=== PATIENT | male | born 1950 | race Caucasian/White ===

== ENCOUNTER 2016-11-16 01:02 | Emergency (ER) | payer MEDICARE, OTHER ==
[2016-11-16 01:17] VITALS: BP 123/64
--- NOTE | 2016-11-16 01:54 | ERNOTE ---
Medical Problem HPI - Narrative Date of Service: 11/16/16 - General Chief Complaint: Flu Symptoms Time Seen by Provider: 11/16/16 01:51 Source: patient - Immun/Allergies/Home Medications Immunizations: IMMUNIZATION HX History of Influenza Vaccine No Hx Pneumococcal Vaccination Yes Allergies/Adverse Reactions: Allergies hay fever Allergy (Uncoded 11/20/16 00:52) Home Medications: HOME MEDICATIONS Amlodipine Besylate 10 mg PO DAILY 11/16/16 [Last Taken Unknown] Atorvastatin Calcium 10 mg PO DAILY 11/16/16 [Last Taken Unknown] Fenofibrate 160 mg PO DAILY 11/16/16 [Last Taken Unknown] Finasteride [Proscar] 5 mg PO DAILY 11/16/16 [Last Taken Unknown] Latanoprost [Xalatan] 1 drop OP BID 11/16/16 [Last Taken Unknown] Omeprazole 40 mg PO DAILY 11/16/16 [Last Taken Unknown] Tamsulosin HCl [Flomax] 0.4 mg PO DAILY 11/16/16 [Last Taken Unknown] Timolol Maleate [Timoptic 0.5% Ophthalmic Solution] 5 ml OP BID 11/16/16 [Last Taken Unknown] guaiFENesin [Mucinex] 600 mg PO BID 11/20/16 [Last Taken Unknown] Losartan Potassium [Cozaar] 100 mg PO DAILY #30 tablet 11/24/16 [Last Taken Unknown] - History of Present History Narrative: PT C/O COLD SX'S FOR 1 WEEK WITH SINUS CONGESTION AND PRODUCTIVE COUGH WITH WHITISH PHLEGM. NO KNOWN FEVER. USING NYQUIL WITHOUT MUCH HELP. WANTS AN ATB. Review of Systems - Review of Systems Constitutional: Present: See HPI ENT: Present: See HPI, nose congestion, nasal drainage Respiratory: Present: See HPI, cough Cardiology: Present: no symptoms reported Gastrointestinal/Abdominal: Present: no symptoms reported Genitourinary: Present: no symptoms reported Musculoskeletal: Present: no symptoms reported Skin: Present: no symptoms reported Neurological: Present: no symptoms reported Hematologic/Lymphatic: Present: no symptoms reported Psych: Present: no symptoms reported All Other Systems: All systems neg except as marked - Patient's Past Medical History Patient History - Medical: No pertinent hx, Arthritis, Obesity, Other Patient History - Cardiac/Respiratory: Hypertension, Hyperlipidemia Patient History - Cancer: No Hx of Cancer Patient History - Surgical Procedures: Cataracts Patient History - Other: None - Social History Living Situations: other Abuse History: No History of abuse Psych History: No pertinent hx Smoking Status: Former smoker Have you smoked in the past 12 months: No Alcohol Use: occasionally Drug Use: marijuana - Immunizations Hx Pneumococcal Vaccination: Yes History of Influenza Vaccine: No Physical Exam - Physical Exam General Appearance: Present: wd/wn, alert, no apparent distress Ears, Nose, Throat: Present: normal except -, nasal congestion, other - + POST NASAL DRAINAGE. Neck: Present: normal inspection Respiratory: Present: no respiratory distress, normal breath sounds, no accessory muscle use, chest nontender, lungs clear - CLEAR TO A & P Cardiovascular/Chest: Present: regular rate, rhythm, no murmur, normal peripheral pulses Neurological Exam: Present: alert, oriented Skin Exam: Present: normal color. Absent: skin rash ED Progress - Vital Signs Vital Signs: Vital Signs 11/16/16 01:08 Temperature 37.4 C Pulse Rate 56 L Respiratory 16 Rate Blood Pressure 123/64 O2 Sat by Pulse 95 Oximetry - Progress/Reassessment Chief Complaint: Flu Symptoms Departure - Departure Clinical Impression: Upper respiratory infection with cough and congestion Disposition: Home Follow Up Needed Condition: Good Instructions: Cough, Adult, [id number], Viral Respiratory Infection, Easy-To- Read, Upper Respiratory Infection, Adult, [id number] Referrals: Aric Iniguez MD [Primary Care Provider] -
--- OUTSIDE RECORDS SUMMARY | 2016-11-16 02:32 | XMS REPORT | Continuity of Care Document ---
:1950 Author Organization [facility] ([facility]) Address [address] [place] [address] Phone [phone] Care Team Providers Name Role Phone Aric Iniguez Primary Care Provider [phone] Source Comments This disclosure is being made pursuant to the Care Everywhere program, applicable federal and state laws, and may not contain all informaitonavailable regarding this patient.[facility] ([facility]) Active Allergies and Adverse Reactions No Known Allergies Current Medications Prescription Sig. Disp. Refills Start Date End Date Status tadalafil (CIALIS) 10 mg Take 10 mg by Active tablet mouth as needed. Indications: Erectile Dysfunction rosuvastatin (CRESTOR) 5 Take 5 mg by Active mg tablet mouth every evening. valsartan-hydrochlorothiaz Take 1 Tab by Active renée (DIOVAN HCT) 320-12.5 mouth daily. mg per tablet fexofenadine 180 mg tablet Take 180 mg by Active mouth as needed. DOCOSAHEXANOIC ACID/EPA Take by mouth Active (FISH OIL PO) daily. fluticasone (FLONASE) 50 use 2 Sprays into Active mcg/Actuation nasal spray the nose as needed. hydrochlorothiazide 25 mg Take 25 mg by Active tablet mouth daily. esomeprazole (NEXIUM) 40 Take 40 mg by Active mg EC capsule mouth every 48 hours. amLODIPine (NORVASC) 10 mg Take 10 mg by Active tablet mouth daily. Fenofibric Acid (TRILIPIX) Take 135 mg by Active 135 mg CpDR mouth daily. aspirin 325 mg tablet Take 325 mg by Active mouth daily. finasteride 5 mg tablet Take 1 Tab by 90 Tab 1 06/16/2013 Active mouth daily. Indications: BENIGN PROSTATIC HYPERTROPHY tamsulosin 0.4 mg ER Take 2 Caps by 60 Cap 5 02/12/2014 Active capsule mouth daily. Indications: BENIGN PROSTATIC HYPERTROPHY Active Problems Problem Noted Date BPH (benign prostatic hyperplasia) 08/14/2011 Social History Tobacco Use Types Packs/Day Years Used Date Former Smoker Cigarettes Smokeless Tobacco: Never Used Last Filed Vital Signs Vital Sign Reading Time Taken Blood Pressure 144/70 11/18/2012 11:12 AM CDT Pulse 57 11/18/2012 11:12 AM CDT Temperature 36.5 C (97.7 F) 11/18/2012 11:12 AM CDT Respiratory Rate 18 11/18/2012 11:12 AM CDT Height 1.803 m (5' 11") 11/18/2012 11:12 AM CDT Weight 115.395 kg (254 lb 6.4 oz) 11/18/2012 11:12 AM CDT Body Mass Index 35.5 11/18/2012 11:12 AM CDT Oxygen Saturation 98% 11/18/2012 11:12 AM CDT Plan of Care Health Maintenance Due Date Last Done Comments HCV Screening 1950 Hepatitis B Vaccine (1 of 3 - Primary Series) 1950 Tdap Vaccine 01/30/1959 Lipid Disorder Screening 01/30/1966 Td Vaccine 01/30/1966 Colonoscopy 01/30/1998 Prostate Cancer Screening 01/30/1998 Zoster Vaccine 2008 Pneumococcal Vaccine (1 of 2 - PCV13) 01/30/2013 Influenza Vaccine: Seasonal (#1) 03/16/2016 Results from Last 3 Months Not on file
== END 2016-11-16 02:28 | disposition home or self-care (01) ==
LOC: ER 01:02
DX: J06.9 Acute upper respiratory infection, unspecified (principal); Z87.891 Personal history of nicotine dependence

== ENCOUNTER 2016-11-19 22:50 | Inpatient (IN) | payer MEDICARE, OTHER ==
[2016-11-19 23:17] LABS: Hemoglobin 12.5 gm/dL (13.5-18.0); Mean Cell Volume 76.2 fl (78-100); Mean Platelet Volume 10.3 fl (6.0-9.5); Neutrophil # 7.6 K/mm3 (1.3-6.0); Neutrophil % 84.8 % (42-75.0); Platelet Count 226 K/mm3 (150-450); Red Blood Count 4.33 M/mm3 (4.7-6.0); Red Cell Distribution Width 11.6 % (11.5-14.0); White Blood Count 8.9 K/mm3 (4.0-10.5)
[2016-11-19 23:24] LABS: Mean Corpuscular Hgb Conc 37.9 g/dl (32-36); Prothrombin Time (Patient) 11.3 Seconds (9.4-11.4)
[2016-11-19 23:25] LABS: INR 1.09 INR (0.90-1.10)
[2016-11-19 23:27] LABS: ALT 63 U/L (19-67); AST 57 U/L (0-48); Albumin * 3.2 gm/dl (3.4-5.0); Alkaline Phosphatase * 41 U/L (50-170); Anion Gap 13.4 mmol/L (6.8-13.8); BNP * 487 pg/mL (5-350); BUN/Creatinine Ratio 22.9 (9.0-21.6); Bilirubin, Total 1.3 mg/dL (0.0-1.1); Blood Urea Nitrogen 30 mg/dL (6-23); Ca. Corrected For Albumin 8.8 mg/dL (8.4-10.2); Calcium * 8.5 mg/dL (7.9-10.9); Carbon Dioxide 26.1 mmol/L (24-32.6); Chloride 78 mmol/L (97-106); Glucose * 130 mg/dL (70-110); Mean Corpuscular Hemoglobin 28.9 pg (27-31); Potassium 3.5 mmol/L (3.4-4.6); Total Protein 7.2 gm/dL (6.2-8.2)
[2016-11-19 23:29] LABS: Sodium 114 mmol/L (132-142); Troponin I Less than 0.017 ng/ml (0.00-0.10)
--- NOTE | 2016-11-19 23:31 | ERNOTE ---
Syncope ER HPI Stated Complaint: NEW SYNCOPAL Immunizations: IMMUNIZATION HX Immunizations Up to Date No History of Influenza Vaccine No Hx Pneumococcal Vaccination Yes Allergies/Adverse Reactions: Allergies No Known Allergies Allergy (Verified 11/19/16 22:58) Home Medications: HOME MEDICATIONS Amlodipine Besylate 10 mg PO DAILY 11/16/16 [Last Taken Unknown] Atorvastatin Calcium 10 mg PO DAILY 11/16/16 [Last Taken Unknown] Benzonatate [Tessalon Perle] 100 mg PO Q6H #30 capsule 11/16/16 [Last Taken Unknown] Fenofibrate 160 mg PO DAILY 11/16/16 [Last Taken Unknown] Finasteride [Proscar] 5 mg PO DAILY 11/16/16 [Last Taken Unknown] Hydrochlorothiazide [Hydrodiuril] 25 mg PO DAILY 11/16/16 [Last Taken Unknown] Latanoprost [Xalatan] 1 drop OP BID 11/16/16 [Last Taken Unknown] Omeprazole 40 mg PO DAILY 11/16/16 [Last Taken Unknown] Tamsulosin HCl [Flomax] 0.4 mg PO DAILY 11/16/16 [Last Taken Unknown] Timolol Maleate [Timoptic 0.5%] 5 ml OP BID 11/16/16 [Last Taken Unknown] Valsartan/Hydrochlorothiazide [Diovan Hct 320-12.5 mg Tab] 1 each PO DAILY 11/16 [Last Taken Unknown] - History of Present Illness Narrative: here for feeling weak. recent diagnosis of URI this am on ABX. He felt dizzy and felt as if he was having a panic attack this am. So EMS was called. When EMS got to residence they noted that he was somewhat weak. pt. has no focal neurological deficits. Review of Systems - Review of Systems Constitutional: Present: no symptoms reported EYE: Present: no symptoms reported ENT: Present: no symptoms reported Respiratory: Present: cough Cardiology: Present: no symptoms reported Gastrointestinal/Abdominal: Present: no symptoms reported Musculoskeletal: Present: no symptoms reported - Patient's Past Medical History Patient History - Medical: No pertinent hx, Arthritis, Other Patient History - Cardiac/Respiratory: Hypertension, Hyperlipidemia Patient History - Cancer: No Hx of Cancer Patient History - Surgical Procedures: Cataracts Patient History - Other: None - Social History Living Situations: home Abuse History: No History of abuse Psych History: No pertinent hx Smoking Status: Former smoker Patient requests Smoking Cessation Consult: No Initiate information on Smoking Cessation: No Alcohol Use: occasionally Drug Use: marijuana - Immunizations Immunizations Up to Date: No Hx Pneumococcal Vaccination: Yes History of Influenza Vaccine: No Physical Exam - Physical Exam General Appearance: Present: wd/wn, alert, no apparent distress Eye Exam: Normal inspection: bilateral, PERRL: bilateral, EOMI: bilateral Ears, Nose, Throat: Present: normal ENT inspection Neck: Present: normal inspection, nontender Respiratory: Present: no respiratory distress, normal breath sounds, chest nontender, lungs clear Cardiovascular/Chest: Present: regular rate, rhythm, no murmur, normal peripheral pulses Gastrointestinal/Abdominal: Present: other - pt is morbidly obese and exam is VERY challenging but his belly is benign Extremity Exam: Present: normal inspection ED Progress - Results and Orders Patient's Lab Results:: I have reviewed the patient's lab results. - Vital Signs Patient's Vital Signs:: I have reviewed the patient's vital signs. Vital Signs: Vital Signs 11/19/16 11/19/16 22:50 23:06 Temperature 36 C L Pulse Rate 63 62 Respiratory 18 18 Rate Blood Pressure 171/69 161/67 O2 Sat by Pulse 95 95 Oximetry - Progress/Reassessment Chief Complaint: Syncopal Episode Plan - Plan Plan: This patient's Sodium is 114. He has Hyponatremia and admits to having drank lots of water today. Hospitalist was consulted for admission. Departure Clinical Impression: Hyponatremia - Departure Disposition: [facility] Condition: Fair Referrals: Aric Iniguez MD [Primary Care Provider] -
--- OUTSIDE RECORDS SUMMARY | 2016-11-19 23:43 | XMS REPORT | Continuity of Care Document ---
:1950 Author Organization [facility] ([facility]) Address [address] [place] [address] Phone [phone] Care Team Providers Name Role Phone Aric Iniguez Primary Care Provider [phone] Source Comments This disclosure is being made pursuant to the Care Everywhere program, applicable federal and state laws, and may not contain all informaitonavailable regarding this patient.[facility] ([facility]) Active Allergies and Adverse Reactions No Known [...]
--- OUTSIDE RECORDS SUMMARY | 2016-11-19 23:47 | XMS REPORT | Continuity of Care Document ---
:1950 Author Organization [facility] ([facility]) Address [address] [place] [address] Phone [phone] Care Team Providers Name Role Phone Aric Iniguez Primary Care Provider [phone] Source Comments This disclosure is being made pursuant to the Care Everywhere program, applicable federal and state laws, and may not contain all informaitonavailable regarding this patient.[facility] ([facility]) Active Allergies and Adverse Reactions No [...]
[2016-11-20] MEDS ORDERED: NORMAL SALINE 1,000 ML IV PRN (01:37)
--- NOTE | 2016-11-20 02:08 | HP ---
Chief Complaint - Chief Complaint Date of Service: 11/20/16 Time of Service: 01:00 Chief Complaint: syncope, weakness, bronchitis History of Present Illness: 66 years old male adm to the hospital from ER with reports of bronchitis, weakness and near syncope. pt stated he was seen yesterday By Dr Iniguez in the clinic and he is been treated for bronchitis.pt report productive cough with thick yellow to white sputum. He stated while at home earlier he felt like he was going to pass out. He called EMS and was brought to the hospital. In ER Na+ 114, BUN/Cre 30/1.31 BNP 487. Will initiate IVF an gentle hydration with NaCL 3%. PMH significant for BPH, hypertension, depression, ED, GERD, and HDL.plan of care discussed with pt he verbalized understanding and agree. - Patient's Past Medical History Patient History - Medical: Arthritis, Depression, GERD, Glaucoma, Obesity, Other - bph, ERECTILE DYSFUNCTION Patient History - Cardiac/Respiratory: Bronchitis, CHF, Hypertension, Hyperlipidemia Patient History - Cancer: No Hx of Cancer Patient History - Surgical Procedures: Cataracts, Colonoscopy, EGD, Other - SKIN EXCISION LESION., Urology - CYSTOSCOPY Patient History - Other: None - Family History Father Family History - Medical: Family History - Cardiac/Respiratory: Coronary Heart Disease, CHF Mother Family History - Medical: Family History - Cancer: Cervical - Social History Living Situations: home Abuse History: No History of abuse Psych History: No pertinent hx Smoking Status: Former smoker Have you smoked in the past 12 months: No Patient requests Smoking Cessation Consult: No Initiate information on Smoking Cessation: No Alcohol Use: occasionally Drug Use: marijuana - Immunizations Immunizations Up to Date: No Hx Pneumococcal Vaccination: Yes History of Influenza Vaccine: No Review Of Systems (GEN) - Review of Systems Generalized/Overall Review: Present: No Symptoms Reported EENTM: Present: No Symptoms Reported Respiratory: Present: No Symptoms Reported Cardiac: Present: No Symptoms Reported Abdominal: Present: No Symptoms Reported Genitourinary: Present: No Symptoms Reported Musculoskeletal: Present: Other - weakness Neurological: Present: Weakness Skin: Present: No Symptoms Reported Endocrine: Present: No Symptoms Reported Immunizations: IMMUNIZATION HX Immunizations Up to Date No History of Influenza Vaccine No Hx Pneumococcal Vaccination Yes Allergies/Adverse Reactions: Allergies Allergy/AdvReac Type Severity Reaction Status Date / Time hay fever Allergy Uncoded 11/20/16 00:52 Home Medications: HOME MEDICATIONS Amlodipine Besylate 10 mg PO DAILY 11/16/16 [Last Taken Unknown] Atorvastatin Calcium 10 mg PO DAILY 11/16/16 [Last Taken Unknown] Fenofibrate 160 mg PO DAILY 11/16/16 [Last Taken Unknown] Finasteride [Proscar] 5 mg PO DAILY 11/16/16 [Last Taken Unknown] Hydrochlorothiazide [Hydrodiuril] 25 mg PO DAILY 11/16/16 [Last Taken Unknown] Latanoprost [Xalatan] 1 drop OP BID 11/16/16 [Last Taken Unknown] Omeprazole 40 mg PO DAILY 11/16/16 [Last Taken Unknown] Tamsulosin HCl [Flomax] 0.4 mg PO DAILY 11/16/16 [Last Taken Unknown] Timolol Maleate [Timoptic 0.5%] 5 ml OP BID 11/16/16 [Last Taken Unknown] Valsartan/Hydrochlorothiazide [Diovan Hct 320-12.5 mg Tab] 1 each PO DAILY 11/16 [Last Taken Unknown] Azithromycin [Zithromax Tri-Diego] 500 mg PO DAILY 11/20/16 [Last Taken 11/19/16] guaiFENesin [Mucinex] 600 mg PO BID 11/20/16 [Last Taken Unknown] predniSONE [Prednisone] 40 mg PO DAILY 11/20/16 [Last Taken 11/19/16] Exam - Exam Vital Signs: Vital Signs - Last Taken Temp 36.3 C L 11/20/16 00:43 Pulse 60 11/20/16 00:43 Resp 20 11/20/16 00:43 BP 164/76 11/20/16 00:43 Pulse Ox 96 11/20/16 00:43 Constitutional: Present: Alert, Oriented x3, Cooperative, No distress, Lethargic , Elderly ENT Exam: Present: moist mucous membranes Eye Exam: bilateral eye: PERRL Neck: Present: full range of motion Back Exam: Present: no CVA tenderness Breasts: Present: Exam deferred Respiratory: Present: chest non-tender, lungs clear, normal breath sounds, no respiratory distress, no accessory muscle use Cardiovascular/Chest: Present: normal peripheral pulses, regular rate, rhythm, no chest tenderness, no edema, no gallop, systolic murmur Peripheral Pulses: dorsalis-pedis (R): 2+, dorsalis-pedis (L): 2+ Abdomen: Present: Normal bowel sounds, soft, nontender, nondistended, no rebound tenderness /Rectal: Present: Exam deferred Extremity: Present: normal range of motion, non-tender, normal inspection, no pedal edema, no calf tenderness, leg cramps Skin Exam: Present: normal color, warm/dry, no cyanosis Neurologic: Present: oriented x 3 Appearance: Present: appropriate appearance Eye contact: Present: cooperative Thoughts: Present: normal thought pattern Diagnostic Studies: Laboratory Results WBC 8.9 K/mm3 (4.0-10.5) 11/19/16 22:50 RBC 4.33 M/mm3 (4.7-6.0) L 11/19/16 22:50 Hgb 12.5 gm/dL (13.5-18.0) L 11/19/16 22:50 Hct 33.0 % (42.0-52.0) L 11/19/16 22:50 MCV 76.2 fl (78-100) L 11/19/16 22:50 MCH 28.9 pg (27-31) 11/19/16 22:50 MCHC 37.9 g/dl (32-36) H 11/19/16 22:50 RDW 11.6 % (11.5-14.0) 11/19/16 22:50 Plt Count 226 K/mm3 (150-450) 11/19/16 22:50 MPV 10.3 fl (6.0-9.5) H 11/19/16 22:50 Immature Gran % (Auto) 0.90 % (0.001-0.429) H 11/19/16 22:50 Immature Gran # (Auto) 0.08 K/mm3 (0.000-0.0310) H 11/19/16 22:50 Neutrophils % 84.8 % (42-75.0) H 11/19/16 22:50 Lymphocytes % 7.7 % (20-51) L 11/19/16 22:50 Monocytes % 6.5 % (0.0-9) 11/19/16 22:50 Eosinophils % 0.0 % (0.0-3.0) 11/19/16 22:50 Basophils % 0.1 % (0.0-1.0) 11/19/16 22:50 Nucleated RBC % 0.0 k/mm3 (0-1) 11/19/16 22:50 Neutrophils # 7.6 K/mm3 (1.3-6.0) H 11/19/16 22:50 Lymphocytes # 0.7 k/mm3 (1.5-3.5) L 11/19/16 22:50 Monocytes # 0.6 k/mm3 (0.0-1.0) 11/19/16 22:50 Eosinophils # 0.0 k/mm3 (0.0-0.7) 11/19/16 22:50 Absolute Basophils 0.0 k/mm3 (0.0-0.1) 11/19/16 22:50 PT 11.3 Seconds (9.4-11.4) 11/19/16 22:50 INR (Anticoag Therapy) 1.09 INR (0.90-1.10) 11/19/16 22:50 PTT (Ivette) 34.0 Seconds (24-32) H 11/19/16 22:50 Sodium 114 mmol/L (132-142) L* D 11/19/16 22:50 Plasma Sodium 114 mmol/L (130-142) L* 11/19/16 22:50 Potassium 3.5 mmol/L (3.4-4.6) 11/19/16 22:50 Chloride 78 mmol/L (97-106) L 11/19/16 22:50 Carbon Dioxide 26.1 mmol/L (24-32.6) 11/19/16 22:50 Anion Gap 13.4 mmol/L (6.8-13.8) 11/19/16 22:50 BUN 30 mg/dL (6-23) H D 11/19/16 22:50 Creatinine 1.31 mg/dL (0.4-1.4) 11/19/16 22:50 Est GFR (Non-Af Amer) 58 mL/min (60-130) L 11/19/16 22:50 BUN/Creatinine Ratio 22.9 (9.0-21.6) H 11/19/16 22:50 Random Glucose 130 mg/dL (70-110) H 11/19/16 22:50 Calcium 8.5 mg/dL (7.9-10.9) 11/19/16 22:50 Calcium Adj for Albumin 8.8 mg/dL (8.4-10.2) 11/19/16 22:50 Total Bilirubin 1.3 mg/dL (0.0-1.1) H 11/19/16 22:50 AST 57 U/L (0-48) H 11/19/16 22:50 ALT 63 U/L (19-67) 11/19/16 22:50 Alkaline Phosphatase 41 U/L (50-170) L 11/19/16 22:50 Troponin I Less than 0.017 ng/ml (0.00-0.10) 11/19/16 22:50 B-Natriuretic Peptide 487 pg/mL (5-350) H 11/19/16 22:50 Total Protein 7.2 gm/dL (6.2-8.2) 11/19/16 22:50 Albumin 3.2 gm/dl (3.4-5.0) L 11/19/16 22:50 Assessment/Plan - Narrative Narrative: Acute Hyponatremia-Likely due to hctz use Will hold HCTZ and diovan/ HCTZ On adm Na+ 114---->112, 07/2016 on previous adm Na+ 140 D/C Normal saline @80ml/hr,Initiated Nacl 3% 15ml/hr and monitor sodium q2HR as sodium continues to trending down. Monitor urine serum urine osmolality CMP in am Near Syncope- possible due to hyponatremia Pt report of syncopal episode while at home before coming to the ER. Orthostatic vital signs safety measures while hospitalized Plan same as #1 GERD Continue with home dose of medication Bronchitis Pt was seen by PCP earlier today and prescribed Azithromycin and prednisone 40mg x5 days Continue with oral medications Monitor CBC, BMP in morning Code status: Full VTE ppx: GI ppx: Anticipate discharge home 0-2 days and follow up with PCP Time 30 minutes and previous records reviewed. - Assessment/Plan (1) Hyponatremia Problem: Acute (2) Bronchitis Problem: Acute (3) GERD (gastroesophageal reflux disease) Problem: Chronic
[2016-11-20 02:30] LABS: Albumin * 3.1 gm/dl (3.4-5.0); Anion Gap 14.2 mmol/L (6.8-13.8); BUN/Creatinine Ratio 22.6 (9.0-21.6); Bilirubin, Total 1.3 mg/dL (0.0-1.1); Ca. Corrected For Albumin 8.8 mg/dL (8.4-10.2); Calcium * 8.4 mg/dL (7.9-10.9); Carbon Dioxide 25.3 mmol/L (24-32.6); Potassium 3.5 mmol/L (3.4-4.6); Total Protein 7.3 gm/dL (6.2-8.2)
[2016-11-20] MEDS: SODIUM CHLORIDE 3 % 500 ML IV SCH ×3 (03:06→16:12)
[2016-11-20 06:17] LABS: Albumin * 3.3 gm/dl (3.4-5.0); Anion Gap 13.5 mmol/L (6.8-13.8); BUN/Creatinine Ratio 21.9 (9.0-21.6); Bilirubin, Total 1.2 mg/dL (0.0-1.1); Calcium * 8.8 mg/dL (7.9-10.9); Chol/HDL Risk Ratio 3.3 mg/dL (3.3-5.0); Potassium 3.5 mmol/L (3.4-4.6); Total Protein 7.4 gm/dL (6.2-8.2)
[2016-11-20] MEDS: PANTOPRAZOLE SODIUM 40 MG TABLET.EC PO SCH (06:46)
[2016-11-20] MEDS ORDERED: ACETAMINOPHEN 500 MG TABLET PO PRN (06:50)
[2016-11-20] MEDS ORDERED: SODIUM CHLORIDE 3 % 500 ML IV SCH (08:45)
[2016-11-20] MEDS: amLODIPine BESYLATE 10 MG TABLET PO SCH (08:47)
[2016-11-20] MEDS: FINASTERIDE 5 MG TABLET PO SCH (08:47)
[2016-11-20] MEDS: FENOFIBRATE,MICRONIZED 134 MG CAPSULE PO SCH (08:47)
[2016-11-20] MEDS: TIMOLOL MALEATE 50 DROP BTL OP SCH ×2 (08:48→20:58)
[2016-11-20] MEDS: predniSONE 20 MG TABLET PO SCH (08:48)
[2016-11-20] MEDS: LATANOPROST 25 DROP BTL OP SCH ×2 (08:49→20:58)
[2016-11-20] MEDS: POLYETHYLENE GLYCOL 3350 119 GM BTL PO SCH (08:51)
[2016-11-20] MEDS: ENOXAPARIN SODIUM 40 MG/0.4 ML SYRG SC SCH (08:57)
[2016-11-20] MEDS ORDERED: TAMSULOSIN HCL 0.4 MG CAP.SR.24H PO SCH (09:00)
[2016-11-20] MEDS ORDERED: ATORVASTATIN CALCIUM 10 MG TABLET PO SCH (09:00)
[2016-11-20] MEDS ORDERED: AZITHROMYCIN 500 MG PO SCH (09:00)
[2016-11-20] MEDS: AZITHROMYCIN 250 MG TABLET PO SCH (09:39)
[2016-11-20] MEDS ORDERED: SODIUM CHLORIDE 3 % 500 ML IV PRN ×2 (09:44→16:06)
--- NOTE | 2016-11-20 10:06 | PN ---
Subjective - Date and Time Seen Date: 11/20/16 Time: 10:02 Subjective Narrative: Patient AAO X3 . No N/V/KELLEY. Positive cough and near syncope yesterday. Objective - Review of Systems Generalized/Overall Review: Reports: Weakness. Denies: Chills, Fever EENTM: Reports: No Symptoms Reported Respiratory: Reports: Cough, Shortness of Breath, Wheezing Cardiac: Denies: Chest Pain, Edema, Palpitations Abdominal: Denies: Nausea, Vomiting Genitourinary Symptoms: Denies: Urgency, Frequency Musculoskeletal Complaints: Reports: Joint Pain Neurological: Reports: Weakness - generalized. Denies: Headache, Numbness, Parasthesia, Seizure, Tingling - Vitals Vitals: Last Vital Signs Temp 36.5 C 11/20/16 06:31 Pulse 60 11/20/16 08:47 Resp 24 H 11/20/16 06:31 BP 171/72 11/20/16 08:47 Pulse Ox 94 11/20/16 06:31 - Exam Constitutional: Present: Alert, Oriented x3, Cooperative ENT Exam: Present: hearing grossly normal Neck: Present: supple Breasts: Present: Exam deferred Respiratory: Present: decreased breath sounds, crackles, wheezing - occasional Cardiovascular/Chest: Present: regular rate, rhythm, no JVD, no murmur Abdomen: Present: Normal bowel sounds, soft, nontender, nondistended Extremity: Present: no pedal edema, no calf tenderness 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 on hypertonic saline. cannot rule chronic hyponatremia as his last Na was 2015 and it was normal. Unlikely SIADH from his acute pulmonary process. (2) Bronchitis Problem: Acute Narrative: continue with Azithromycin. (3) GERD (gastroesophageal reflux disease) Problem: Chronic (4) Hypertension Problem: Chronic Qualifiers: Hypertension type: essential hypertension Qualified Code(s): I10 - Essential (primary) hypertension (5) Hyperlipidemia Problem: Chronic Qualifiers: Hyperlipidemia type: mixed hyperlipidemia Qualified Code(s): E78.2 - Mixed hyperlipidemia (6) BPH (benign prostatic hypertrophy) Problem: Chronic Qualifiers: Prostatic enlargement morphology: unspecified morphology Lower urinary tract symptom presence: presence of symptoms unspecified Qualified Code(s): N40.0 - Benign prostatic hyperplasia without lower urinary tract symptoms
[2016-11-20 10:26] LABS: Chol/HDL Risk Ratio 3.5 mg/dL (3.3-5.0); TSH * 0.464 uIU/mL (0.358-3.74)
[2016-11-20] MEDS ORDERED: ALBUTEROL SULFATE/IPRATROPIUM 3 ML NEBU IH PRN (12:16)
[2016-11-20] MEDS ORDERED: SODIUM CHLORIDE 500 DROP BTL NS PRN (13:39)
[2016-11-20] MEDS ORDERED: hydrOXYzine HCL 25 MG TABLET PO PRN (17:00)
[2016-11-20] MEDS: TAMSULOSIN HCL 0.4 MG CAP.SR.24H PO SCH (19:06)
[2016-11-20] MEDS: ROSUVASTATIN CALCIUM 10 MG TABLET PO SCH (20:57)
[2016-11-21] MEDS: SODIUM CHLORIDE 3 % 500 ML IV SCH ×2 (01:26→17:10)
[2016-11-21] MEDS: PANTOPRAZOLE SODIUM 40 MG TABLET.EC PO SCH (06:30)
--- NOTE | 2016-11-21 08:54 | PN ---
Subjective - Date and Time Seen Date: 11/21/16 Time: 08:51 Subjective Narrative: Patient is feeling better but still coughing , mostly nonprodcutive. Na is up 127. Objective - Review of Systems Generalized/Overall Review: Denies: Chills, Fever EENTM: Reports: No Symptoms Reported Respiratory: Reports: Cough. Denies: Shortness of Breath, Wheezing Cardiac: Denies: Chest Pain, Edema, Palpitations Abdominal: Denies: Nausea, Vomiting Genitourinary Symptoms: Denies: Urgency, Frequency Musculoskeletal Complaints: Denies: Joint Pain - Vitals Vitals: Last Vital Signs Temp 36.6 C 11/21/16 06:37 Pulse 54 L 11/21/16 06:37 Resp 20 11/21/16 06:37 BP 129/63 11/21/16 06:37 Pulse Ox 93 11/21/16 06:37 - Abnormal Lab Findings Abnormal Lab Findings: Abnormal Lab Results 11/20/16 11/20/16 11/20/16 Range/Units 10:08 12:10 16:39 Sodium 116 L* 114 L* 116 L* (132-142) mmol/L LDL Cholesterol 61 L (70-130) mg/dL HDL Cholesterol 31 L (40-60) mg/dL 11/20/16 11/21/16 11/21/16 Range/Units 20:05 00:23 03:45 Sodium 119 L 123 L 123 L (132-142) mmol/L LDL Cholesterol (70-130) mg/dL HDL Cholesterol (40-60) mg/dL 11/21/16 Range/Units 08:14 Sodium 127 L (132-142) mmol/L LDL Cholesterol (70-130) mg/dL HDL Cholesterol (40-60) mg/dL - Exam Constitutional: Present: Alert, Oriented x3, Cooperative ENT Exam: Present: hearing grossly normal Neck: Present: supple Breasts: Present: Exam deferred Respiratory: Present: decreased breath sounds, No rales, No wheezing Cardiovascular/Chest: Present: regular rate, rhythm, no JVD, no murmur Abdomen: Present: Normal bowel sounds, soft, nontender, nondistended, no rebound tenderness Extremity: Present: no pedal edema, no calf tenderness Assessment/Plan - Problems/Diagnosis (1) Hyponatremia Problem: Acute Narrative: improving. Na 127 . (2) Bronchitis Problem: Acute Narrative: continue with azithromycin. (3) GERD (gastroesophageal reflux disease) Problem: Chronic (4) Hypertension Problem: Chronic Qualifiers: Hypertension type: essential hypertension Qualified Code(s): I10 - Essential (primary) hypertension (5) Hyperlipidemia Problem: Chronic Qualifiers: Hyperlipidemia type: mixed hyperlipidemia Qualified Code(s): E78.2 - Mixed hyperlipidemia (6) BPH (benign prostatic hypertrophy) Problem: Chronic Qualifiers: Prostatic enlargement morphology: unspecified morphology Lower urinary tract symptom presence: presence of symptoms unspecified Qualified Code(s): N40.0 - Benign prostatic hyperplasia without lower urinary tract symptoms
[2016-11-21] MEDS: LATANOPROST 25 DROP BTL OP SCH ×2 (09:30→20:18)
[2016-11-21] MEDS: TIMOLOL MALEATE 50 DROP BTL OP SCH ×2 (09:30→20:14)
[2016-11-21] MEDS: FLUTICASONE PROPIONATE 120 SPRAY INHALER NS SCH (09:30)
[2016-11-21] MEDS: ENOXAPARIN SODIUM 40 MG/0.4 ML SYRG SC SCH (09:30)
[2016-11-21] MEDS: POLYETHYLENE GLYCOL 3350 119 GM BTL PO SCH (09:30)
[2016-11-21] MEDS: AZITHROMYCIN 250 MG TABLET PO SCH (09:31)
[2016-11-21] MEDS: FENOFIBRATE,MICRONIZED 134 MG CAPSULE PO SCH (09:31)
[2016-11-21] MEDS: predniSONE 20 MG TABLET PO SCH (09:31)
[2016-11-21] MEDS: FINASTERIDE 5 MG TABLET PO SCH (09:31)
[2016-11-21] MEDS: amLODIPine BESYLATE 10 MG TABLET PO SCH (09:31)
[2016-11-21] MEDS: TAMSULOSIN HCL 0.4 MG CAP.SR.24H PO SCH (19:49)
[2016-11-21] MEDS: ROSUVASTATIN CALCIUM 10 MG TABLET PO SCH (20:14)
[2016-11-22] MEDS: PANTOPRAZOLE SODIUM 40 MG TABLET.EC PO SCH (06:30)
[2016-11-22 06:44] LABS: Anion Gap 10.2 mmol/L (6.8-13.8); BUN/Creatinine Ratio 17.9 (9.0-21.6); Calcium * 8.5 mg/dL (7.9-10.9); Carbon Dioxide 26.4 mmol/L (24-32.6); Estimated Creat Clear 67.2; Potassium 3.6 mmol/L (3.4-4.6)
[2016-11-22] MEDS: FINASTERIDE 5 MG TABLET PO SCH (08:54)
[2016-11-22] MEDS: predniSONE 20 MG TABLET PO SCH (08:54)
[2016-11-22] MEDS: POLYETHYLENE GLYCOL 3350 119 GM BTL PO SCH (08:54)
[2016-11-22] MEDS: FLUTICASONE PROPIONATE 120 SPRAY INHALER NS SCH (08:54)
[2016-11-22] MEDS: FENOFIBRATE,MICRONIZED 134 MG CAPSULE PO SCH (08:54)
[2016-11-22] MEDS ORDERED: MAGNESIUM HYDROXIDE 30 ML UDC PO ONE (08:55)
[2016-11-22] MEDS: AZITHROMYCIN 250 MG TABLET PO SCH (08:55)
[2016-11-22] MEDS: ENOXAPARIN SODIUM 40 MG/0.4 ML SYRG SC SCH (08:55)
[2016-11-22] MEDS: amLODIPine BESYLATE 10 MG TABLET PO SCH (08:55)
[2016-11-22] MEDS: TIMOLOL MALEATE 50 DROP BTL OP SCH ×2 (08:56→20:57)
[2016-11-22] MEDS: LATANOPROST 25 DROP BTL OP SCH ×2 (08:56→20:56)
--- NOTE | 2016-11-22 09:02 | PN ---
Subjective - Date and Time Seen Date: 11/22/16 Time: 08:56 Subjective Narrative: Patient feels a little better. No BM since admission. Na is up to 129. Objective - Review of Systems Generalized/Overall Review: Denies: Chills, Fever EENTM: Reports: No Symptoms Reported Respiratory: Reports: Cough. Denies: Shortness of Breath, Wheezing Cardiac: Denies: Chest Pain, Palpitations Abdominal: Denies: Nausea, Vomiting Genitourinary Symptoms: Denies: Urgency, Frequency Musculoskeletal Complaints: Denies: Joint Pain - Vitals Vitals: Last Vital Signs Temp 36.8 C 11/22/16 07:09 Pulse 66 11/22/16 07:09 Resp 20 11/22/16 07:09 BP 151/60 11/22/16 07:09 Pulse Ox 94 11/22/16 07:09 - Abnormal Lab Findings Abnormal Lab Findings: Abnormal Lab Results 11/20/16 11/21/16 11/21/16 Range/Units 13:10 12:03 15:54 Sodium 127 L 126 L (132-142) mmol/L Plasma Sodium (130-142) mmol/L Chloride (97-106) mmol/L Serum Osmolality 235 L mOsm/kg 11/21/16 11/22/16 Range/Units 19:54 06:30 Sodium 125 L 129 L (132-142) mmol/L Plasma Sodium 129 L (130-142) mmol/L Chloride 96 L (97-106) mmol/L Serum Osmolality mOsm/kg - Exam Constitutional: Present: Alert, Oriented x3, Cooperative ENT Exam: Present: hearing grossly normal Neck: Present: supple Breasts: Present: Exam deferred Respiratory: Present: normal breath sounds, No wheezing, plerual rub Cardiovascular/Chest: Present: regular rate, rhythm, no JVD, no murmur Abdomen: Present: soft, nontender, distended, hypoactive Extremity: Present: no calf tenderness, pedal edema Assessment/Plan - Problems/Diagnosis (1) Hyponatremia Problem: Acute Narrative: continues to improve . Na 129. (2) Bronchitis Problem: Acute Narrative: improved. (3) GERD (gastroesophageal reflux disease) Problem: Chronic (4) Hypertension Problem: Chronic Qualifiers: Hypertension type: essential hypertension Qualified Code(s): I10 - Essential (primary) hypertension Narrative: will restart his ARB but d/c the diuretic part. recheck Na at 6 p.m. (5) Hyperlipidemia Problem: Chronic Qualifiers: Hyperlipidemia type: mixed hyperlipidemia Qualified Code(s): E78.2 - Mixed hyperlipidemia (6) BPH (benign prostatic hypertrophy) Problem: Chronic Qualifiers: Prostatic enlargement morphology: unspecified morphology Lower urinary tract symptom presence: presence of symptoms unspecified Qualified Code(s): N40.0 - Benign prostatic hyperplasia without lower urinary tract symptoms (7) Constipation Problem: Acute Qualifiers: Constipation type: slow transit constipation Qualified Code(s): K59.01 - Slow transit constipation Narrative: MOM x 1.
[2016-11-22] MEDS: LOSARTAN POTASSIUM 50 MG TABLET PO SCH (09:48)
[2016-11-22] MEDS: SODIUM CHLORIDE 3 % 500 ML IV SCH ×2 (12:43→12:45)
[2016-11-22] MEDS: TAMSULOSIN HCL 0.4 MG CAP.SR.24H PO SCH (18:21)
[2016-11-22] MEDS ORDERED: NORMAL SALINE 1,000 ML IV PRN (20:33)
[2016-11-22] MEDS: ROSUVASTATIN CALCIUM 10 MG TABLET PO SCH (20:57)
[2016-11-23 06:25] LABS: Anion Gap 8.2 mmol/L (6.8-13.8); BUN/Creatinine Ratio 18.9 (9.0-21.6); Calcium * 8.4 mg/dL (7.9-10.9); Carbon Dioxide 26.9 mmol/L (24-32.6); Potassium 4.1 mmol/L (3.4-4.6)
[2016-11-23] MEDS: PANTOPRAZOLE SODIUM 40 MG TABLET.EC PO SCH (06:43)
[2016-11-23] MEDS: ENOXAPARIN SODIUM 40 MG/0.4 ML SYRG SC SCH (09:03)
[2016-11-23] MEDS: LOSARTAN POTASSIUM 50 MG TABLET PO SCH (09:04)
[2016-11-23] MEDS: FLUTICASONE PROPIONATE 120 SPRAY INHALER NS SCH (09:04)
[2016-11-23] MEDS: POLYETHYLENE GLYCOL 3350 119 GM BTL PO SCH (09:04)
[2016-11-23] MEDS: FENOFIBRATE,MICRONIZED 134 MG CAPSULE PO SCH (09:04)
[2016-11-23] MEDS: predniSONE 20 MG TABLET PO SCH (09:05)
[2016-11-23] MEDS: AZITHROMYCIN 250 MG TABLET PO SCH (09:05)
[2016-11-23] MEDS: FINASTERIDE 5 MG TABLET PO SCH (09:05)
[2016-11-23] MEDS: LATANOPROST 25 DROP BTL OP SCH ×2 (09:05→20:23)
[2016-11-23] MEDS: amLODIPine BESYLATE 10 MG TABLET PO SCH (09:05)
[2016-11-23] MEDS: TIMOLOL MALEATE 50 DROP BTL OP SCH ×2 (09:06→20:23)
--- NOTE | 2016-11-23 17:20 | PN ---
Subjective - Date and Time Seen Date: 11/23/16 Time: 17:05 Subjective Narrative: sodium up to 130 ( up from 112 at admission). weakness is resolved. pt states he has walked in [place] today without any difficulty. NS iv fluids currently infusing. Objective - Review of Systems Generalized/Overall Review: Reports: No Symptoms Reported EENTM: Reports: No Symptoms Reported Respiratory: Reports: No Symptoms Reported Cardiac: Reports: No Symptoms Reported Abdominal: Reports: No Symptoms Reported Genitourinary Symptoms: Reports: No Symptoms Reported Musculoskeletal Complaints: Reports: No Symptoms Reported Neurological: Reports: No Symptoms Reported Skin: Reports: No Symptoms Reported Endocrine: Reports: No Symptoms Reported Misc: All systems neg except as marked - Vitals Vitals: Last Vital Signs Temp 36.7 C 11/23/16 15:01 Pulse 65 11/23/16 15:01 Resp 18 11/23/16 15:01 BP 151/62 11/23/16 15:01 Pulse Ox 97 11/23/16 15:01 - Abnormal Lab Findings Abnormal Lab Findings: Abnormal Lab Results 11/22/16 11/23/16 Range/Units 17:57 06:00 Sodium 129 L 130 L (132-142) mmol/L - Exam Constitutional: Present: Alert, Oriented x3, Cooperative, No distress ENT Exam: Present: hearing grossly normal Neck: Present: full range of motion, supple Breasts: Present: Exam deferred Respiratory: Present: chest non-tender, lungs clear, normal breath sounds, no accessory muscle use Cardiovascular/Chest: Present: normal peripheral pulses, regular rate, rhythm Abdomen: Present: Normal bowel sounds, soft, nontender, nondistended Extremity: Present: normal range of motion, non-tender, normal inspection Skin Exam: Present: normal color, warm/dry, no cyanosis Neurologic: Present: alert, oriented x 3 Assessment/Plan Plan Narrative: pt has improved significantly. Na+ at 130. will turn off IV fluids and saline lock iv overnight. check labs in am. if am Na+ 130 or higher - pt may discharge in the am. discharge on HTN home medication without the diuretic. - Problems/Diagnosis (1) Hyponatremia Problem: Acute (2) Bronchitis Problem: Acute (3) Constipation Problem: Acute Qualifiers: Constipation type: slow transit constipation Qualified Code(s): K59.01 - Slow transit constipation (4) BPH (benign prostatic hypertrophy) Problem: Chronic Qualifiers: Prostatic enlargement morphology: unspecified morphology Lower urinary tract symptom presence: presence of symptoms unspecified Qualified Code(s): N40.0 - Benign prostatic hyperplasia without lower urinary tract symptoms (5) GERD (gastroesophageal reflux disease) Problem: Chronic Qualifiers: Esophagitis presence: without esophagitis Qualified Code(s): K21.9 - Gastro -esophageal reflux disease without esophagitis (6) Hyperlipidemia Problem: Chronic Qualifiers: Hyperlipidemia type: mixed hyperlipidemia Qualified Code(s): E78.2 - Mixed hyperlipidemia (7) Hypertension Problem: Chronic Qualifiers: Hypertension type: essential hypertension Qualified Code(s): I10 - Essential (primary) hypertension
[2016-11-23] MEDS: TAMSULOSIN HCL 0.4 MG CAP.SR.24H PO SCH (18:26)
[2016-11-23] MEDS: ROSUVASTATIN CALCIUM 10 MG TABLET PO SCH (20:23)
[2016-11-24 05:50] LABS: Anion Gap 11.6 mmol/L (6.8-13.8); BUN/Creatinine Ratio 18.2 (9.0-21.6); Calcium * 8.6 mg/dL (7.9-10.9); Carbon Dioxide 26.7 mmol/L (24-32.6); Estimated Creat Clear 68.5; Potassium 4.3 mmol/L (3.4-4.6)
[2016-11-24] MEDS: PANTOPRAZOLE SODIUM 40 MG TABLET.EC PO SCH (06:49)
[2016-11-24] MEDS: ENOXAPARIN SODIUM 40 MG/0.4 ML SYRG SC SCH (08:12)
[2016-11-24] MEDS: amLODIPine BESYLATE 10 MG TABLET PO SCH (08:41)
[2016-11-24] MEDS: FENOFIBRATE,MICRONIZED 134 MG CAPSULE PO SCH (08:42)
[2016-11-24] MEDS: LOSARTAN POTASSIUM 50 MG TABLET PO SCH (08:43)
[2016-11-24] MEDS: FINASTERIDE 5 MG TABLET PO SCH (08:44)
[2016-11-24] MEDS: LATANOPROST 25 DROP BTL OP SCH (08:45)
[2016-11-24] MEDS: TIMOLOL MALEATE 50 DROP BTL OP SCH (08:45)
[2016-11-24] MEDS: FLUTICASONE PROPIONATE 120 SPRAY INHALER NS SCH (08:45)
[2016-11-24] MEDS: POLYETHYLENE GLYCOL 3350 119 GM BTL PO SCH (08:46)
[2016-11-24 09:11] VITALS: BP 147/67
--- NOTE | 2016-11-24 09:42 | DS ---
(1) Hyponatremia Problem: Acute Description of Stay: ADMISSION DATE: 11.20.2016 DISCHARGE DATE: 11.24.2016 ADMISSION HPI BY LATHA OSWALD: 66 years old male adm to the hospital from ER with reports of bronchitis, weakness and near syncope. pt stated he was seen yesterday By Dr Iniguez in the clinic and he is been treated for bronchitis.pt report productive cough with thick yellow to white sputum. He stated while at home earlier he felt like he was going to pass out. He called EMS and was brought to the hospital. In ER Na+ 114, BUN/Cre 30/1.31 BNP 487. Will initiate IVF and gentle hydration with NaCL 3%. PMH significant for BPH, hypertension, depression, ED, GERD, and HDL. Plan of care discussed with pt he verbalized understanding and agree. HOSPITAL COURSE: Patient admitted for hyponatremia which was felt to be secondary to poor PO intake and diuretic use. Patient treated with 3% NaCl with improvement in his sodium level as well as improvement in his presenting symptom of generalized weakness. Patient discharged home in stable condition and instructed to follow- up with his PCP within 1 week. I would recommend checking a BMP at his follow- up visit to monitor his sodium level. FOLLOW-UP APPOINTMENTS: Follow-up with PCP, Dr. Iniguez, within 1 week Procedures Performed: none Results and Findings: Laboratory Tests 11/20/16 11/20/16 11/20/16 01:29 02:10 03:10 Plasma Sodium 113 L* Ur Specific [place] 1.025 Urine Osmolality Ur Random Sodium 40 11/20/16 11/20/16 11/22/16 05:57 11:07 06:30 Plasma Sodium 116 L* 129 L Ur Specific [place] Urine Osmolality 688 Ur Random Sodium 11/23/16 11/24/16 06:00 05:10 Plasma Sodium 130 133 Ur Specific [place] Urine Osmolality Ur Random Sodium Discharge Disposition: Home self care Disposition: Home self-care Condition: Stable Discharge Activity: Activity as tolerated Discharge Diet: Resume usual diet Referrals: Aric Iniguez MD [Primary Care Provider] - Problem Oriented Discharge Instructions to Patient/Family: Hyponatremia, Easy- to-Read Additional Patient Instructions (free text): Follow-up with PCP, Dr. Iniguez, on 12.02.2016 at 9:30AM Prescriptions (Any new or edited meds): Losartan Potassium [Cozaar] 100 mg PO DAILY #30 tablet Complete Home Medications List: Complete Home Medication List: Amlodipine Besylate 10 mg PO DAILY 11/16/16 Atorvastatin Calcium 10 mg PO DAILY 11/16/16 Fenofibrate 160 mg PO DAILY 11/16/16 Finasteride [Proscar] 5 mg PO DAILY 11/16/16 Latanoprost [Xalatan] 1 drop OP BID 11/16/16 Omeprazole 40 mg PO DAILY 11/16/16 Tamsulosin HCl [Flomax] 0.4 mg PO DAILY 11/16/16 Timolol Maleate [Timoptic 0.5% Ophthalmic Solution] 5 ml OP BID 11/16/16 Losartan Potassium [Cozaar] 100 mg PO DAILY #30 tablet 11/24/16
== END 2016-11-24 11:00 | disposition home or self-care (01) | DRG 641 ==
LOC: ER 22:50 → MS 23:42 → OBSVTOIN 11-20 08:34
PROVIDERS: ADMIT Nurse Practitioner; ATTEND Internal Medicine
DX: E87.1 Hypo-osmolality and hyponatremia (principal); J20.9 Acute bronchitis, unspecified; R53.1 Weakness; K59.01 Slow transit constipation; I10 Essential (primary) hypertension; K21.9 Gastro-esophageal reflux disease without esophagitis; E78.5 Hyperlipidemia, unspecified; N40.0 Benign prostatic hyperplasia without lower urinary tract symptoms; Z87.891 Personal history of nicotine dependence
CPT/HCPCS: 36415; 80048; 80053; 80061; 83880; 83930; 83935; 84295; 84300; 84443; 84484; 85025; 85610; 85730; 87070; 93005; 94640; 99283; G0378

== ENCOUNTER 2016-12-01 00:17 | Emergency (ER) | payer MEDICARE, OTHER ==
[2016-12-01] MEDS ORDERED: ACETAMINOPHEN 500 MG TABLET PO ONE (00:57)
--- OUTSIDE RECORDS SUMMARY | 2016-12-01 01:08 | XMS REPORT | Continuity of Care Document ---
:1950 Author Organization [facility] ([facility]) Address [address] [place] [address] Phone [phone] Care Team Providers Name Role Phone Aric Iniguez Primary Care Provider [phone] Source Comments This disclosure is being made pursuant to the Care Everywhere program, applicable federal and state laws, and may not contain all informaitonavailable regarding this patient.[facility] ([facility]) Active Allergies and Adverse Reactions No Known [...]
--- NOTE | 2016-12-01 01:46 | ERNOTE ---
Back Pain ER HPI Date of Service: 11/30/16 Presenting Symptoms: injury/pain to back Source: patient Immunizations: IMMUNIZATION HX Immunizations Up to Date Yes History of Influenza Vaccine No Hx Pneumococcal Vaccination Yes Allergies/Adverse Reactions: Allergies hay fever Allergy (Uncoded 12/01/16 00:35) Home Medications: HOME MEDICATIONS Amlodipine Besylate 10 mg PO DAILY 11/16/16 [Last Taken Unknown] Atorvastatin Calcium 10 mg PO DAILY 11/16/16 [Last Taken Unknown] Fenofibrate 160 mg PO DAILY 11/16/16 [Last Taken Unknown] Finasteride [Proscar] 5 mg PO DAILY 11/16/16 [Last Taken Unknown] Latanoprost [Xalatan] 1 drop OP BID 11/16/16 [Last Taken Unknown] Omeprazole 40 mg PO DAILY 11/16/16 [Last Taken Unknown] Tamsulosin HCl [Flomax] 0.4 mg PO DAILY 11/16/16 [Last Taken Unknown] Timolol Maleate [Timoptic 0.5% Ophthalmic Solution] 5 ml OP BID 11/16/16 [Last Taken Unknown] Losartan Potassium [Cozaar] 100 mg PO DAILY #30 tablet 11/24/16 [Last Taken Unknown] Narrative: 66 year old that had the spontaneous onset of right upper back pain after a coughing today. He describes the pain as being very sharp and is not exacerbated by deep breathing. The pain is exacerbated by coughing. The non productive cough is improving and has been occurring for two weeks. No complaints of chest pain or unusual shortness of breath (chronically has mild shortness of breath). The patient was able to mow his lawn today and did notice that he was short of breath, but it did not seem unusual. Admitted to the hospital last week for hyponatremia. One week ago he noticed ecchymosis at the right flank/and back, but does not complain of pain at the same site. No complaints of fevers or chills. He is uncertain if he fell prior to being hospitalized since he had been disoriented. Timing: Reports: intermittent Quality/Severity: Reports: moderate Location of pain: Reports: upper back Activities at Onset: Reports: none Recent Injury?: Reports: no Possible Precipitating Factor: Reports: none - coughing Modifying Factors - (Improves): Reports: other - being still Modifying Factors - (Worsens): Reports: cough/deep breaths Associated Symptoms: Denies: fever/chills Review of Systems - Review of Systems Constitutional: Present: no symptoms reported EYE: Present: no symptoms reported ENT: Present: no symptoms reported Respiratory: Present: no symptoms reported Cardiology: Present: no symptoms reported Gastrointestinal/Abdominal: Present: no symptoms reported Genitourinary: Present: no symptoms reported Musculoskeletal: Present: no symptoms reported Skin: Present: no symptoms reported Neurological: Present: no symptoms reported Endocrine: Present: no symptoms reported Hematologic/Lymphatic: Present: no symptoms reported Psych: Present: no symptoms reported - Patient's Past Medical History Patient History - Medical: Arthritis, Depression, GERD, Glaucoma, Obesity, Other Patient History - Cardiac/Respiratory: Bronchitis, CHF, Hypertension, Hyperlipidemia Patient History - Cancer: No Hx of Cancer Patient History - Surgical Procedures: Cataracts, Colonoscopy, EGD, Other, Urology Patient History - Other: None - Family History Father Family History - Medical: Family History - Cardiac/Respiratory: Coronary Heart Disease, CHF Mother Family History - Medical: Family History - Cancer: Cervical - Social History Living Situations: home Abuse History: No History of abuse Psych History: No pertinent hx Smoking Status: Former smoker Patient requests Smoking Cessation Consult: No Initiate information on Smoking Cessation: No Alcohol Use: occasionally Drug Use: marijuana - Immunizations Immunizations Up to Date: Yes Hx Pneumococcal Vaccination: Yes History of Influenza Vaccine: No Physical Exam - Physical Exam General Appearance: Present: no apparent distress Eye Exam: Normal inspection: bilateral, PERRL: bilateral Ears, Nose, Throat: Present: normal ENT inspection Neck: Present: normal inspection, supple, full range of motion Respiratory: Present: no respiratory distress Cardiovascular/Chest: Present: regular rate, rhythm Gastrointestinal/Abdominal: Present: nondistended Back Exam: Present: normal inspection, other - The pain could not be localized with palpation; however it was well localized after coughing Extremity Exam: Present: normal inspection Neurological Exam: Present: alert, oriented, normal mood/affect, lace stripper II-XII nml as tested Skin Exam: Present: normal color, other - large ecchymosis at the right flank and lower back, which is non tender. ED Progress - Results and Orders Patient's Lab Results:: I have reviewed the patient's lab results. - Vital Signs Patient's Vital Signs:: I have reviewed the patient's vital signs. Vital Signs: Vital Signs 12/01/16 00:29 Temperature 37 C Pulse Rate 64 Respiratory 18 Rate Blood Pressure 174/85 O2 Sat by Pulse 97 Oximetry - X-Ray X-Ray #1 X-Ray: chest Interpretation: Interp. by me X-ray Comments: No rib fracture, pnumothorax seen. - CT/Ultrasound CT/Ultrasound Narrative: CT of the abdomen did demonstrate periumbilical skin thickening and subcutaneous edema consistent with cellulitis. No abscess was seen. - Progress/Reassessment Chief Complaint: Back Pain Progress:: Unchanged Progress Note-Subjective: 12/01/16 01:45 Given Tylenol 1 gram po. 12/01/16 02:48 The pain at the upper back has decreased after the use of Tylenol and is considered mild. Departure Clinical Impression: Rib pain on right side - Departure Disposition: Home self-care Condition: Good Instructions: Chest Wall Pain Print Language: Yi Additional Instructions: Continue to take Tylenol every four hours for pain control. If you become short of breath return to the ED. Referrals: Aric Iniguez MD [Primary Care Provider] -
[2016-12-01 01:49] LABS: Hematocrit 33.6 % (42.0-52.0); Hemoglobin 11.5 gm/dL (13.5-18.0); Mean Cell Volume 85.3 fl (78-100); Mean Corpuscular Hemoglobin 29.2 pg (27-31); Mean Corpuscular Hgb Conc 34.2 g/dl (32-36); Mean Platelet Volume 8.8 fl (6.0-9.5); Neutrophil # 7.2 K/mm3 (1.3-6.0); Neutrophil % 74.2 % (42-75.0); Platelet Count 372 K/mm3 (150-450); Red Blood Count 3.94 M/mm3 (4.7-6.0); Red Cell Distribution Width 13.2 % (11.5-14.0); White Blood Count 9.7 K/mm3 (4.0-10.5)
[2016-12-01 01:57] LABS: Anion Gap 14.7 mmol/L (6.8-13.8); BUN/Creatinine Ratio 16.7 (9.0-21.6); Calcium * 8.8 mg/dL (7.9-10.9); Carbon Dioxide 24.2 mmol/L (24-32.6); Estimated Creat Clear 59.8; Potassium 3.9 mmol/L (3.4-4.6)
[2016-12-01 01:59] LABS: Prothrombin Time (Patient) 10.6 Seconds (9.4-11.4)
[2016-12-01 02:01] LABS: INR 1.02 INR (0.90-1.10)
[2016-12-01 02:54] VITALS: BP 166/88
== END 2016-12-01 02:52 | disposition home or self-care (01) ==
LOC: ER 00:17
DX: R07.81 Pleurodynia (principal); Z87.891 Personal history of nicotine dependence; I10 Essential (primary) hypertension; K21.9 Gastro-esophageal reflux disease without esophagitis; H40.9 Unspecified glaucoma

== ENCOUNTER 2017-03-18 06:49 | Day surgery (SDC) | payer MEDICARE, OTHER ==
[~2017-03-18 06:49] MED LIST: ceFAZolin SODIUM 1 GM VIAL IV PRN
[2017-03-18] MEDS: RINGER'S SOLUTION,LACTATED 1,000 ML IV PRN (07:30)
[2017-03-18] MEDS ORDERED: BUPIVACAINE HCL 50 ML VIAL IJ ONE ×2 (08:15)
[2017-03-18 12:18] VITALS: BP 131/72
--- NOTE | 2017-03-24 16:39 | OR ---
Operative Report - Dictated Report Narrative: Date: 03/18/2017 Physician: Marcos Mccabe M.D. Psych Specialist: Neto Friedman PA-C Preoperative diagnosis: Right Cubital tunnel syndrome Postoperative diagnosis: Right Cubital tunnel syndrome Procedure: Right ulnar nerve decompression at the cubital tunnel Anesthesia: General Plus local Complications: None Estimated blood loss: Minimal Tourniquet time: 20 Minutes at 250 mmHg Specimens: None Retained implants: None Drains: None Indications: Is a 67 year-old male who has been followed in my clinic with complaints of cubital tunnel syndrome. Physical exam as well as diagnostic testing showed compression of the ulnar nerve compatible with cubital tunnel syndrome. Conservative measures have failed including but not limited to activity modification, medications, and splinting. The risks, benefits, and alternatives were discussed in clinic. The risks being bleeding, infection, nerve, tendon, blood vessel injury, persistent pain, wound competitions, weakness, palm pain, need for additional procedures, and persistent symptoms. Consent was obtained in the clinic. Procedure: After marking the correct extremity in the preoperative holding area, a timeout was performed in the operating room. IV antibiotics consisting of 2 g of Ancef were administered prior to the procedure. A well-padded tourniquet was applied to the operative upper arm. The arm was exsanguinated and the tourniquet was inflated to 250 mmHg. 0.5% Marcaine without epinephrine was infused into the projected incision site over the medial elbow. Using loupe magnification, a longitudinal incision centered over the cubital tunnel was made approximately 7 centimeters in length. Blunt dissection was carried down to the subcutaneous tissues using bipolar cautery for hemostasis. Care was taken to protect the identified underlying cutaneous nerves. The ulnar nerve was identified as it passed through the medial intermuscular septum along the distal triceps. A release of the canal in this area as the ulnar nerve passed anterior to posterior was performed in order to decompress the nerve at this site. The nerve was dissected releasing the overlying soft tissues while maintaining the vascularity of the nerve down to the area of the medial epicondyles and Paula' s ligament. The nerve was completely decompressed as it passed posterior to the medial condyle and was followed into the flexor carpi ulnaris. The deep fascia of the flexor carpi ulnaris muscle was released in order to decompress the nerve at this site. The first branch of the ulnar nerve was protected as well as any identified recurrent branches. The elbow was placed through range of motion and it was noted that the nerve was not unstable nor did it appear to be under tension as it passed behind the medial epicondyle. For this reason it was not felt that a transposition was necessary. Once it was felt that we had completely released the compressive structures on the ulnar nerve, the wounds were thoroughly irrigated and the tourniquet was deflated. Hemostasis was obtained using pressure and bipolar cautery. Once adequate hemostasis was in place local anesthetic was placed in the skin edges, and the subcutaneous tissue was closed with interrupted Vicryl. The skin was closed with interrupted 4-0 nylon and sterile dressings consisting of Xeroform, 4 x 4, soft roll, and a forearm Mars wrap was applied. All sponge, needle, blade, and instrument counts were correct prior to closing the wounds. The patient was awoken and transferred to the postanesthesia care unit in stable condition.
== END 2017-03-18 06:50 | disposition home or self-care (01) ==
LOC: AMB 06:49
PROVIDERS: ATTEND Orthopaedic Surgery
PROC: 01N40ZZ Release Ulnar Nerve, Open Approach (ICD-10-PCS; principal; 2017-03-18 08:00)
DX: G56.21 Lesion of ulnar nerve, right upper limb (principal); I10 Essential (primary) hypertension; E78.1 Pure hyperglyceridemia; K21.9 Gastro-esophageal reflux disease without esophagitis; E66.9 Obesity, unspecified; Z68.37 Body mass index [BMI] 37.0-37.9, adult; Z87.891 Personal history of nicotine dependence

== ENCOUNTER 2018-12-17 14:16 | Observation (INO) ==
[2018-12-17] MEDS ORDERED: ASPIRIN 81 MG TAB.CHEW PO ONE (14:38)
[2018-12-17 14:59] LABS: Hematocrit 32.2 % (42.0-52.0); Mean Cell Volume 85.9 fl (78-100); Mean Corpuscular Hemoglobin 29.3 pg (27-31); Mean Corpuscular Hgb Conc 34.2 g/dl (32-36); Mean Platelet Volume 9.4 fl (8-11.3); Neutrophil # 7.1 K/mm3 (1.3-6.0); Neutrophil % 72.5 % (42-75.0); Platelet Count 246 K/mm3 (150-450); Red Blood Count 3.75 M/mm3 (4.7-6.0); Red Cell Distribution Width 12.8 % (11.5-14.0); White Blood Count 9.8 K/mm3 (4.0-10.5)
[2018-12-17 15:14] LABS: Prothrombin Time (Patient) 10.7 Seconds (9.1-10.7)
[2018-12-17 15:17] LABS: INR 1.08 INR (0.92-1.08); Partial Thrombolplastin Time 25.1 Seconds (24-32)
[2018-12-17 15:22] LABS: Troponin I 0.038 ng/mL (0.00-0.10)
[2018-12-17] MEDS ORDERED: NORMAL SALINE 1,000 ML IV ONE (15:23)
[2018-12-17 15:24] LABS: Albumin * 2.9 gm/dl (3.4-5.0); Anion Gap 14.2 mmol/L (6.8-13.8); BUN/Creatinine Ratio 26.6 (9.0-21.6); Bilirubin, Total 0.4 mg/dL (0.0-1.1); Ca. Corrected For Albumin 9.3 mg/dL (8.4-10.2); Calcium * 8.7 mg/dL (7.9-10.9); Carbon Dioxide 23.6 mmol/L (24-32.6); Potassium 4.8 mmol/L (3.4-4.6); Total Protein 5.9 gm/dL (6.2-8.2)
--- NOTE | 2018-12-17 15:30 | ERNOTE ---
Chest Pain/Cardiac HPI Date of Service: 12/17/18 Chief Complaint: Chest Pain Time Seen by Provider: 12/17/18 14:38 Source: patient Exam Limitations: no limitations Immunizations: IMMUNIZATION HX Immunizations Up to Date Yes History of Influenza Vaccine No Hx Pneumococcal Vaccination Yes Allergies/Adverse Reactions: Allergies No Known Allergies Allergy (Verified 12/09/18 11:02) Home Medications: HOME MEDICATIONS Losartan Potassium [Cozaar] 100 mg PO DAILY #30 tab 11/24/16 [Last Taken Unknown] Aspirin [Aspirin Enteric Coated] 81 mg PO DAILY 03/11/17 [Last Taken Unknown] [place]-3 Fatty Acids/Fish Oil [Fish Oil 1,000 mg Capsule] 3 ea PO DAILY 03/11/17 [Last Taken Unknown] Tadalafil [Cialis] 10 mg PO DAILY PRN 03/11/17 [Last Taken Unknown] amlodipine 10 mg tablet 10 mg PO DAILY #90 tab 05/17/18 [Last Taken Unknown] losartan 100 mg tablet 100 mg PO DAILY #90 tab 06/22/18 [Last Taken Unknown] atorvastatin 10 mg tablet 10 mg PO DAILY #90 tab 06/30/18 [Last Taken Unknown] Timolol [Betimol] 1 drp EACHEYE DAILY 07/29/18 [Last Taken Unknown] finasteride 5 mg tablet 5 mg PO DAILY #90 tab 08/23/18 [Last Taken Unknown] tamsulosin 0.4 mg capsule 0.4 mg PO DAILY #90 cap 08/30/18 [Last Taken Unknown] omeprazole 40 mg capsule,delayed release 40 mg PO DAILY #90 cap 12/01/18 [Last Taken Unknown] Narrative: patient presents with c/o of chest pain earlier and persistant dizzyness, denies chst pain at present Timing: constant, resolved prior to arrival Severity/Quality: mild, other Location: substernal Chest Pain Radiation: no radiation Activities at Onset: none Modifying Factors - Improves: Present: nothing Modifying Factors - Worsens: Present: nothing Nitro Today/Relief: no nitro taken today Aspirin Treatment Today: no aspirin today Associated Symptoms: Present: dizziness, weakness Prior Chest Pain/Cardiac Workup: Reports: prior chest pain, other - patient relates that he had no mi but dx with aortic stenosis Review of Systems - Review of Systems Constitutional: Present: See HPI, weakness, fatigue EYE: Present: no symptoms reported ENT: Present: no symptoms reported Respiratory: Present: no symptoms reported Cardiology: Present: chest pain Gastrointestinal/Abdominal: Present: no symptoms reported Genitourinary: Present: no symptoms reported Musculoskeletal: Present: no symptoms reported Skin: Present: no symptoms reported Neurological: Present: no symptoms reported Endocrine: Present: no symptoms reported Hematologic/Lymphatic: Present: no symptoms reported Psych: Present: no symptoms reported All Other Systems: All systems neg except as marked Medical History (Updated 08/17/18 @ 15:57 by Aric Iniguez MD) GERD (gastroesophageal reflux disease) (Chronic) Onset Date: Unknown Hypertension (Chronic) Onset Date: Unknown Hyperlipidemia (Chronic) Onset Date: Unknown BPH (benign prostatic hypertrophy) (Chronic) Onset Date: Unknown Carpal tunnel syndrome Onset Date: 03/05/17 Depression Onset Date: Unknown Erectile dysfunction Onset Date: 2007 Glaucoma Onset Date: Unknown Obesity Onset Date: Unknown Urge incontinence Onset Date: 2007 Surgical History: Surgical History (Updated 03/22/18 @ 10:42 by Huma Gardiner RN) H/O colonoscopy Onset Date: 10/09/131998: normal findings; 2013 [place]- tubular adenoma x2, hyperplastic polyp x1, recheck in 5-10 yrs H/O cystoscopy Onset Date: 08/07/09 H/O local excision of skin lesion Onset Date: 03/28/07 Left upper back. benign seborrheic keratosis. H/O nasal septoplasty Onset Date: 1977 History of esophagogastroduodenoscopy (EGD) Onset Date: 09/05/021998 gastritis w/esophageal biliary reflux. 2002 [place] mild gastritis Hx of cataract surgery Onset Date: 1993 Right S/P cubital tunnel release Onset Date: 03/18/17 right Family History: Family History (Updated 03/22/18 @ 10:43 by Huma Gardiner RN) Father Hypertension Myocardial infarction Mother Cancer Social History: Preferred Language Lithuanian Do you have any rastafarian or Yes: jain cultural preference? Smoking Status Never smoker Abuse History No History of abuse Psych History Hx of Depression Alcohol Use occasionally Drug Use none (Last Reviewed 12/09/18 @ 11:02 by Harriet Hinkle LPN) No Social History Section defined Physical Exam - Physical Exam General Appearance: Present: mild distress, anxious Head Exam: Present: normal inspection, no evidence of injury Eye Exam: Normal inspection: bilateral, PERRL: bilateral, EOMI: bilateral Ears, Nose, Throat: Present: normal ENT inspection, normal pharynx Neck: Present: normal inspection, nontender Respiratory: Present: no respiratory distress, normal breath sounds, no accessory muscle use, chest nontender, lungs clear Cardiovascular/Chest: Present: regular rate, rhythm, no murmur, normal peripheral pulses Gastrointestinal/Abdominal: Present: normal bowel sounds, nontender, nondistended, soft, no organomegaly Back Exam: Present: normal inspection, normal range of motion, no CVA tender ness, no vertebral tenderness Extremity Exam: Present: normal inspection, non-tender, normal range of motion, no edema Neurological Exam: Present: alert, oriented, normal mood/affect, no motor/sensory deficits Skin Exam: Present: normal color, warm/dry Lymphatic Exam: Present: no adenopathy Progress - Date and Time Seen: Date and Time: 12/17/18 19:08 patient improved, discussed results of lab and x-rays with patient, recommend a dmission to hospital to r/o mi dr cochran excepts patient - Results and Orders Patient's Lab Results:: I have reviewed the patient's lab results. - Vital Signs Patient's Vital Signs:: I have reviewed the patient's vital signs. Vital Signs: Vital Signs 12/17/18 14:17 12/17/18 15:16 Temperature 37.1 C Pulse Rate 81 68 Respiratory Rate 16 16 Blood Pressure 133/66 110/56 O2 Sat by Pulse Oximetry 96 96 - EKG EKG #1 EKG: NSR EKG read: Interp. by me - X-Ray X-Ray #1 X-Ray: chest Interpretation: Discd w/ radiologist - no acute process - Progress/Reassessment Chief Complaint: Chest Pain Progress:: Improved - Transfer of Care Expected Disposition: Admit Plan - Plan Plan: to admit to observation Departure Clinical Impression: Chest pain - Departure Disposition: Still a patient Condition: Stable Referrals: Aric Iniguez MD [Primary Care Provider] -
[2018-12-17] MEDS: NORMAL SALINE 1,000 ML IV PRN (20:58)
[2018-12-17] MEDS ORDERED: TAMSULOSIN HCL 0.4 MG CAP.SR.24H PO SCH (22:30)
--- NOTE | 2018-12-17 23:54 | HP ---
Chief Complaint - Chief Complaint Date of Service: 12/17/18 Time of Service: 10:30 Chief Complaint: Chest Pain History of Present Illness: is a 68 yo male that presents to the [facility] with chest pain. There is no radiation, shortness of breath, nausea, or sweats. He denies any change to his diet, medication, or activity. He reports the chest pain occurred after eating, it was not worsened by physical activity. Medical History (Updated 12/22/18 @ 16:29 by Aric Iniguez MD) GERD (gastroesophageal reflux disease) (Chronic) Onset Date: Unknown Hypertension (Chronic) Onset Date: Unknown Hyperlipidemia (Chronic) Onset Date: Unknown BPH (benign prostatic hypertrophy) (Chronic) Onset Date: Unknown Carpal tunnel syndrome Onset Date: 03/05/17 Depression Onset Date: Unknown Erectile dysfunction Onset Date: 2007 Glaucoma Onset Date: Unknown Obesity Onset Date: Unknown Urge incontinence Onset Date: 2007 Surgical History: Surgical History (Updated 12/29/18 @ 10:22 by Dalila Moreno RN) H/O colonoscopy Onset Date: 10/09/13 08/13/99 [place]-normal. 10/09/13 [place]-tubular adenoma x2, hyperplastic polyp x1. Recheck 5-10 yrs. H/O cystoscopy Onset Date: 08/07/09 [place] H/O local excision of skin lesion Onset Date: 03/28/07 [place]-Left upper back. benign seborrheic keratosis. H/O nasal septoplasty Onset Date: 1977 History of esophagogastroduodenoscopy (EGD) Onset Date: 09/05/02 08/13/99 [place]-gastritis w/esophageal biliary reflux. 09/05/02 [place]-mild gastritis Hx of cataract surgery Onset Date: 1993 Right S/P cubital tunnel release Onset Date: 03/18/17 [place]-right Family History: Family History (Updated 12/29/18 @ 10:23 by Dalila Moreno RN) Father , age 62-OR Hypertension Mother , age 46-ovarian ca Cancer ovarian Sister No problems noted. 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 Smoking Status Former smoker Have you smoked in the past 12 No months Do you dip or chew tobacco No Abuse History No History of abuse Psych History Hx of Depression Alcohol Use occasionally Drug Use none (Last Reviewed 12/09/18 @ 11:02 by Harriet Hinkle LPN) No Social History Section defined Review Of Systems (GEN) - Review of Systems Generalized/Overall Review: Absent: Weakness, Chills, Fever EENTM: Present: No Symptoms Reported Respiratory: Absent: Cough, Shortness of Breath Cardiac: Present: Chest Pain. Absent: Edema, Palpitations Abdominal: Absent: Nausea, Vomiting Genitourinary: Present: No Symptoms Reported Musculoskeletal: Present: No Symptoms Reported Neurological: Present: No Symptoms Reported Skin: Present: No Symptoms Reported Endocrine: Present: No Symptoms Reported Immunizations: IMMUNIZATION HX Immunizations Up to Date Yes History of Influenza Vaccine No Hx Pneumococcal Vaccination Yes Allergies/Adverse Reactions: Allergies Allergy/AdvReac Type Severity Reaction Status Date / Time No Known Allergies Allergy Verified 12/23/18 09:12 Home Medications: HOME MEDICATIONS Aspirin [Aspirin Enteric Coated] 81 mg PO DAILY 03/11/17 [Last Taken 12/16/18 21:00] [place]-3 Fatty Acids/Fish Oil [Fish Oil 1,000 mg Capsule] 3 ea PO DAILY 03/11/17 [Last Taken 12/17/18 09:00] Tadalafil [Cialis] 10 mg PO DAILY PRN 03/11/17 [Last Taken Unknown] amlodipine 10 mg tablet 10 mg PO DAILY #90 tab 05/17/18 [Last Taken 12/17/18 09:00] losartan 100 mg tablet 100 mg PO DAILY #90 tab 06/22/18 [Last Taken 12/17/18 09:00] atorvastatin 10 mg tablet 10 mg PO DAILY #90 tab 06/30/18 [Last Taken 12/17/18 09:00] Timolol [Betimol] 1 drp EACHEYE BID 07/29/18 [Last Taken 12/17/18 09:00] finasteride 5 mg tablet 5 mg PO DAILY #90 tab 08/23/18 [Last Taken 12/17/18 09:00] tamsulosin 0.4 mg capsule 0.4 mg PO DAILY #90 cap 08/30/18 [Last Taken 12/16/18 20:00] omeprazole 40 mg capsule,delayed release 40 mg PO DAILY #90 cap 12/01/18 [Last Taken 12/17/18 09:00] Exam - Exam Vital Signs: Vital Signs - Last Taken Temp 36.7 C 12/17/18 22:40 Pulse 74 12/17/18 22:40 Resp 20 12/17/18 22:40 BP 122/61 12/17/18 22:40 Pulse Ox 97 12/17/18 22:40 Constitutional: Present: Alert, Oriented x3, Cooperative ENT Exam: Present: hearing grossly normal Eye Exam: bilateral eye: normal inspection Respiratory: Present: lungs clear, normal breath sounds Cardiovascular/Chest: Present: regular rate, rhythm, no murmur Abdomen: Present: Normal bowel sounds, soft, nontender, nondistended Extremity: Present: normal inspection Skin Exam: Present: normal color, warm/dry, no cyanosis Appearance: Present: appropriate appearance, appropriate insight Eye contact: Present: cooperative, good eye contact, normal speech Thoughts: Present: normal thought pattern, no apparent hallucination Diagnostic Studies: Abnormal Lab Results 12/17/18 12/17/18 Range/Units 14:55 14:55 RBC 3.75 L (4.7-6.0) M/mm3 Hgb 11.0 L (13.5-18.0) gm/dL Hct 32.2 L (42.0-52.0) % Immature Gran % (Auto) 0.50 H (0.001-0.429) % Immature Gran # (Auto) 0.05 H (0.000-0.0310) K/mm3 Lymphocytes % 14.6 L (20-51) % Eosinophils % 3.8 H (0.0-3.0) % Neutrophils # 7.1 H (1.3-6.0) K/mm3 Lymphocytes # 1.42 L (1.5-3.5) k/mm3 Potassium 4.8 H D (3.4-4.6) mmol/L Carbon Dioxide 23.6 L (24-32.6) mmol/L Anion Gap 14.2 H (6.8-13.8) mmol/L BUN 34 H D (6-23) mg/dL Est GFR (Non-Af Amer) 59 L (60-130) mL/min BUN/Creatinine Ratio 26.6 H (9.0-21.6) Random Glucose 134 H (70-110) mg/dL Total Protein 5.9 L (6.2-8.2) gm/dL Albumin 2.9 L (3.4-5.0) gm/dl Laboratory Results WBC 9.8 K/mm3 (4.0-10.5) 12/17/18 14:55 RBC 3.75 M/mm3 (4.7-6.0) L 12/17/18 14:55 Hgb 11.0 gm/dL (13.5-18.0) L 12/17/18 14:55 Hct 32.2 % (42.0-52.0) L 12/17/18 14:55 MCV 85.9 fl (78-100) 12/17/18 14:55 MCH 29.3 pg (27-31) 12/17/18 14:55 MCHC 34.2 g/dl (32-36) 12/17/18 14:55 RDW 12.8 % (11.5-14.0) 12/17/18 14:55 Plt Count 246 K/mm3 (150-450) 12/17/18 14:55 MPV 9.4 fl (8-11.3) 12/17/18 14:55 Immature Gran % (Auto) 0.50 % (0.001-0.429) H 12/17/18 14:55 Immature Gran # (Auto) 0.05 K/mm3 (0.000-0.0310) H 12/17/18 14:55 72.5 % (42-75.0) 12/17/18 14:55 14.6 % (20-51) L 12/17/18 14:55 8.0 % (0.0-9) 12/17/18 14:55 3.8 % (0.0-3.0) H 12/17/18 14:55 0.6 % (0.0-1.0) 12/17/18 14:55 Nucleated RBC % 0.0 k/mm3 (0-1) 12/17/18 14:55 7.1 K/mm3 (1.3-6.0) H 12/17/18 14:55 1.42 k/mm3 (1.5-3.5) L 12/17/18 14:55 0.8 k/mm3 (0.0-1.0) 12/17/18 14:55 0.4 k/mm3 (0.0-0.7) 12/17/18 14:55 Absolute Basophils 0.1 k/mm3 (0.0-0.1) 12/17/18 14:55 PT 10.7 Seconds (9.1-10.7) 12/17/18 14:55 INR (Anticoag Therapy) 1.08 INR (0.92-1.08) 12/17/18 14:55 PTT (Edgar) 25.1 Seconds (24-32) 12/17/18 14:55 Sodium 138 mmol/L (132-142) 12/17/18 14:55 139 mmol/L (130-142) 12/17/18 14:55 Potassium 4.8 mmol/L (3.4-4.6) H D 12/17/18 14:55 Chloride 105 mmol/L (97-106) 12/17/18 14:55 Carbon Dioxide 23.6 mmol/L (24-32.6) L 12/17/18 14:55 14.2 mmol/L (6.8-13.8) H 12/17/18 14:55 BUN 34 mg/dL (6-23) H D 12/17/18 14:55 1.28 mg/dL (0.4-1.4) 12/17/18 14:55 Est GFR (Non-Af Amer) 59 mL/min (60-130) L 12/17/18 14:55 26.6 (9.0-21.6) H 12/17/18 14:55 134 mg/dL (70-110) H 12/17/18 14:55 Calcium 8.7 mg/dL (7.9-10.9) 12/17/18 14:55 Calcium Adj for Albumin 9.3 mg/dL (8.4-10.2) 12/17/18 14:55 0.4 mg/dL (0.0-1.1) 12/17/18 14:55 AST 31 U/L (0-48) 12/17/18 14:55 ALT 60 U/L (19-67) 12/17/18 14:55 54 U/L (50-170) 12/17/18 14:55 0.080 ng/mL (0.00-0.10) 12/17/18 18:30 B-Natriuretic Peptide 91 pg/mL (5-350) 12/17/18 14:55 5.9 gm/dL (6.2-8.2) L 12/17/18 14:55 2.9 gm/dl (3.4-5.0) L 12/17/18 14:55 Assessment/Plan - Narrative Narrative: is a 68 yo male with chest pain. Initial work up in the ER was negative for acute OR. Will admit to observation on telemetry, repeat troponin, and EKG. Anticipate discharge tomorrow. - Assessment/Plan (1) Chest pain Problem: Acute Qualifiers: Chest pain type: unspecified Qualified Code(s): R07.9 - Chest pain, unspecified
[2018-12-18] MEDS: NORMAL SALINE 1,000 ML IV PRN ×2 (04:58→13:02)
[2018-12-18] MEDS ORDERED: LOSARTAN POTASSIUM 50 MG TABLET PO SCH (12:00)
[2018-12-18] MEDS ORDERED: ASPIRIN 81 MG TABLET.DR PO SCH (12:00)
[2018-12-18] MEDS ORDERED: FINASTERIDE 5 MG TABLET PO SCH (12:00)
[2018-12-18] MEDS ORDERED: amLODIPine BESYLATE 10 MG TABLET PO SCH (12:00)
[2018-12-18] MEDS ORDERED: TAMSULOSIN HCL 0.4 MG CAP.SR.24H PO SCH (12:00)
[2018-12-18] MEDS ORDERED: PANTOPRAZOLE SODIUM 40 MG TABLET.EC PO SCH (12:15)
[2018-12-18] MEDS ORDERED: ROSUVASTATIN CALCIUM 10 MG TABLET PO SCH (12:15)
[2018-12-18 12:19] LABS: Albumin * 3.2 gm/dl (3.4-5.0); Anion Gap 11.3 mmol/L (6.8-13.8); Bilirubin, Total 0.3 mg/dL (0.0-1.1); Ca. Corrected For Albumin 9.6 mg/dL (8.4-10.2); Calcium * 9.3 mg/dL (7.9-10.9); Carbon Dioxide 23.8 mmol/L (24-32.6); Potassium 4.1 mmol/L (3.4-4.6); Total Protein 6.6 gm/dL (6.2-8.2); Troponin I 0.064 ng/mL (0.00-0.10)
[2018-12-18] MEDS ORDERED: amLODIPine BESYLATE 5 MG TABLET ONE (12:58)
--- NOTE | 2018-12-18 13:28 | DS ---
(1) GERD (gastroesophageal reflux disease) Problem: Chronic Qualifiers: Esophagitis presence: without esophagitis Qualified Code(s): K21.9 - Gastro-esophageal reflux disease without esophagitis Description of Stay: is a 68 yo male that was admitted for chest pain. Cardiac evaluation was negative for IA. It appears chest pain is related to meals and he has noticed black stools at times. Hemoglobin was mildly low. He will continue his omeprazole and hold aspirin at this time. He will follow up with Dr. Iniguez this next week for a repeat hemoglobin and if blood in stools persist may consider EGD as outpatient. As he is medically stable and asymptomatic at this time will plan to discharge to home. Procedures Performed: none Results and Findings: Lab Pending Results 12/17/18 14:55: WBC 9.8, RBC 3.75 L, Hgb 11.0 L, Hct 32.2 L, MCV 85.9, MCH 29.3, MCHC 34.2, RDW 12.8, Plt Count 246, MPV 9.4, Immature Gran % (Auto) 0.50 H, Immature Gran # (Auto) 0.05 H, Neutrophils % 72.5, Lymphocytes % 14.6 L, Monocytes % 8.0, Eosinophils % 3.8 H, Basophils % 0.6, Nucleated RBC % 0.0, Neutrophils # 7.1 H, Lymphocytes # 1.42 L, Monocytes # 0.8, Eosinophils # 0.4, Absolute Basophils 0.1 12/17/18 14:55: PT 10.7, INR (Anticoag Therapy) 1.08, PTT (Ivette) 25.1 12/17/18 14:55: Sodium 138, Plasma Sodium 139, Potassium 4.8 H D, Chloride 105, Carbon Dioxide 23.6 L, Anion Gap 14.2 H, BUN 34 H D, Creatinine 1.28, Est GFR (Non-Af Amer) 59 L, BUN/Creatinine Ratio 26.6 H, Random Glucose 134 H, Calcium 8.7, Calcium Adj for Albumin 9.3, Total Bilirubin 0.4, AST 31, ALT 60, Alkaline Phosphatase 54, Troponin I 0.038, Total Protein 5.9 L, Albumin 2.9 L 12/17/18 14:55: B-Natriuretic Peptide 91 12/17/18 18:30: Troponin I 0.080 12/18/18 00:25: Troponin I 0.096 12/18/18 11:35: Sodium 137, Plasma Sodium 137, Potassium 4.1, Chloride 106, Carbon Dioxide 23.8 L, Anion Gap 11.3, BUN 35 H, Creatinine 0.92, Est GFR (Non- Af Amer) 86 D, BUN/Creatinine Ratio 38.0 H, Random Glucose 106, Calcium 9.3, Calcium Adj for Albumin 9.6, Total Bilirubin 0.3, AST 18, ALT 49, Alkaline Phosphatase 50, Troponin I 0.064, Total Protein 6.6, Albumin 3.2 L Discharge Location: Home Disposition: Home self-care Condition: Good Discharge Activity: Activity as tolerated Discharge Diet: General/regular food Referrals: Aric Iniguez MD [Primary Care Provider] - (Follow up this coming week for recheck of hemoglobin) Problem Oriented Discharge Instructions to Patient/Family: Heartburn, Ahvl-mg-Hgpo, Gastrointestinal Bleeding, Mnvy-br-Sdid Complete Home Medications List: Complete Home Medication List: Aspirin [Aspirin Enteric Coated] 81 mg PO DAILY 03/11/17 [place]-3 Fatty Acids/Fish Oil [Fish Oil 1,000 mg Capsule] 3 ea PO DAILY 03/11/17 Tadalafil [Cialis] 10 mg PO DAILY PRN 03/11/17 amlodipine 10 mg tablet 10 mg PO DAILY #90 tab 05/17/18 losartan 100 mg tablet 100 mg PO DAILY #90 tab 06/22/18 atorvastatin 10 mg tablet 10 mg PO DAILY #90 tab 06/30/18 Timolol [Betimol] 1 drp EACHEYE BID 07/29/18 finasteride 5 mg tablet 5 mg PO DAILY #90 tab 08/23/18 tamsulosin 0.4 mg capsule 0.4 mg PO DAILY #90 cap 08/30/18 omeprazole 40 mg capsule,delayed release 40 mg PO DAILY #90 cap 12/01/18 Amb Orders for Discharge: CBC Time Frame: 3 Days, Location: Laboratory Comprehensive Metabolic Panel Time Frame: 3 Days, Location: Laboratory
[2018-12-18 13:38] VITALS: BP 172/78
== END 2018-12-18 14:12 | disposition home or self-care (01) ==
LOC: ER 14:16 → MS 14:16
PROVIDERS: ADMIT Family Medicine; ATTEND Internal Medicine
DX: R07.9 Chest pain, unspecified; K21.9 Gastro-esophageal reflux disease without esophagitis
CPT/HCPCS: 36415; 71020; 71046; 80053; 83519; 83880; 84484; 85025; 85610; 85730; 93005; 96360; 96361; 99285; G0378